=== PATIENT | female | born 1945 ===

== ENCOUNTER 2016-11-09 09:59 | Emergency (ER) | payer OTHER ==
[2016-11-09 10:09] VITALS: BP 124/65; PULSE 76; RESP 16; TEMP 98.1; O2SAT 100; BMI 20.9
--- NOTE | 2016-11-09 11:23 | ED PDOC ---
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 states for the past 10 years she's been having b/l hand pain. She was seen by a steamtable attendant railroad in [facility] who diagnosed her with arthritis. She was advised to take Advil which she has been taking intermittently since then. Over the past week symptoms worsened prompting ED visit today. Reports Advil no longer provides pain relief. Denies fever, trauma, numbness, tingling, weakness. Of note, when she wakes up in the morning pain is at its worst and she describes pain as a stiffness. Past Medical History Reviewed: Historical Data, Nursing Documentation, Vital Signs Vital Signs: Last Vital Signs Temp 98.1 F 11/09/16 10:08 Pulse 76 11/09/16 10:08 Resp 16 11/09/16 10:08 BP 124/65 11/09/16 10:08 Pulse Ox 100 11/09/16 10:08 - Medical History PMH: Arthritis, HTN - Surgical History Surgical History: Cholecystectomy - Family History Family History: States: No Known Family Hx - Home Medications Home Medications: Ambulatory Orders Medication Instructions Recorded Meloxicam [Mobic] 7.5 mg PO DAILY PRN #14 tab 11/09/16 - Allergies Allergies/Adverse Reactions: Allergies Allergy/AdvReac Type Severity Reaction Status Date / Time No Known Allergies Allergy Verified 11/09/16 10:15 Review of Systems ROS Statement: Except As Marked, All Systems Reviewed And Found Negative Musculoskeletal: Positive for: Hand Pain Physical Exam - Physical Exam Appears: Positive for: Well, Non-toxic, No Acute Distress Skin: Positive for: Normal Color, Warm. Negative for: Rash Pulses-Radial (L): 2+ Pulses-Radial (R): 2+ Extremity: Positive for: Normal ROM (actively of all joints on both hands), Capillary Refill (< 2 seconds of b/l hands), Other (b/l hands: no tenderness, swelling, deformity, warmth, erythema, break in skin integrity) - ECG O2 Sat by Pulse Oximetry: 100 Disposition - Clinical Impression Clinical Impression: Arthralgia - Patient ED Disposition Is Patient to be Admitted: No - Disposition Referrals: [facility] [Outside] Disposition: Routine/Home Disposition Time: 11:25 Condition: STABLE Additional Instructions: FOLLOW UP WITH [facility] IN 2 DAYS FOR FURTHER EVALUATION. Prescriptions: Meloxicam [Mobic] 7.5 mg PO DAILY PRN #14 tab PRN Reason: Pain Instructions: Arthralgia (ED) Forms: [employer] [facility] ([place]) Print Language: KITTITIAN
== END 2016-11-09 11:24 | disposition home or self-care (01) ==
LOC: H.ER 09:59
DX: M19.90 Unspecified osteoarthritis, unspecified site (principal); I10 Essential (primary) hypertension

== ENCOUNTER 2017-05-08 14:23 | Emergency (ER) | payer OTHER ==
[2017-05-08 14:23] VITALS: BMI 20.9
[2017-05-08 14:46] VITALS: PULSE 73; RESP 18; TEMP 99.6; O2SAT 98
--- NOTE | 2017-05-08 15:21 | ED PDOC ---
Upper Extremity Pain/Injury Time Seen by Provider: 05/08/17 14:48 Chief Complaint (Nursing): Upper Extremity Problem/Injury Chief Complaint (Provider): Left wrist and shoulder pain History Per: Patient History/Exam Limitations: no limitations Onset/Duration Of Symptoms: Hrs Current Symptoms Are (Timing): Still Present Quality: "Pain" Additional History Per: Patient Additional Complaint(s): 71 yo female with history of hypertension and arthritis, presents to ED with pain to left wrist and left shoulder s/p slip and fall earlier today. Patient tripped on sidewalk and fell with left arm out in front of her. She denies any head injury or loss of consciousness; she denies any weakness, numbness or tingling. Patient denies any dizziness or syncope prior to fall. PMD: [facility] Past Medical History Reviewed: Historical Data, Nursing Documentation, Vital Signs Vital Signs: Last Vital Signs Temp 99.6 F 05/08/17 14:41 Pulse 73 05/08/17 14:41 Resp 18 05/08/17 14:41 BP Pulse Ox 98 05/08/17 14:41 - Medical History PMH: Arthritis, HTN - Surgical History Surgical History: Cholecystectomy, (x 3) - Family History Family History: States: No Known Family Hx - Living Arrangements Living Arrangements: With Family - Social History Current smoker - smoking cessation education provided: No Ex-Smoker (has not smoked in the last 12 months): No Alcohol: None Drugs: Denies - Home Medications Home Medications: Ambulatory Orders Medication Instructions Recorded Meloxicam [Mobic] 7.5 mg PO DAILY PRN #14 tab 11/09/16 Ibuprofen [Motrin] 600 mg PO Q6 PRN #15 tab 05/08/17 - Allergies Allergies/Adverse Reactions: Allergies Allergy/AdvReac Type Severity Reaction Status Date / Time No Known Allergies Allergy Verified 11/09/16 10:15 Review of Systems ROS Statement: Except As Marked, All Systems Reviewed And Found Negative Musculoskeletal: Positive for: Other (Left wrist and left shoulder pain s/p trip and fall) Neurological: Positive for: Other (no head injury or LOC, no dizziness or syncope prior to fall) Physical Exam - Reviewed Nursing Documentation Reviewed: Yes Vital Signs Reviewed: Yes - Physical Exam Appears: Positive for: Non-toxic, No Acute Distress Head Exam: Positive for: ATRAUMATIC Skin: Positive for: Normal Color Eye Exam: Positive for: Normal appearance Neck: Positive for: Painless ROM, Pain On Movement Of Neck Cardiovascular/Chest: Positive for: Regular Rate, Rhythm Respiratory: Positive for: Normal Breath Sounds. Negative for: Respiratory Distress Pulses-Radial (L): 2+ Back: Negative for: L CVA Tenderness, R CVA Tenderness, Vertebral Tenderness Extremity: Positive for: Tenderness (diffuse tenderness to left anterior shoulder with full ROM of shoulder), Swelling (swelling and decreased ROM of left wrist along ulnar aspect.) Neurologic/Psych: Positive for: Alert, Oriented, Gait (steady). Negative for: Motor/Sensory Deficits - ECG O2 Sat by Pulse Oximetry: 98 (RA) Pulse Ox Interpretation: Normal - Other Rad Left wrist x-ray X-Ray: Viewed By Me, Read By Radiologist X-Ray Interpretation: swelling, no fx, no dis Left shoulder x-ray X-Ray: Interpreted by Me, Viewed By Me X-Ray Interpretation: no fx, no dis Medical Decision Making Medical Decision Making: Impression: left shoulder and wrist pain s/p mechanical fall Plan: -- XR left shoulder -- XR left wrist -- Motrin 600 mg PO Patient is aware of x-ray results, all questions answered. See procedure note. Rx motrin given. Patient was instructed to follow up with clinic in 2-3 days. Scribe Attestation: Documented by Hayley Rome acting as a scribe for GIBSON Taylor Provider Attestation: All medical record entries made by the Scribe were at my direction and personally dictated by me. I have reviewed the chart and agree that the record accurately reflects my personal performance of the history, physical exam, medical decision making, and the department course for this patient. I have also personally directed, reviewed, and agree with the discharge instructions and disposition. Procedures - Splinting Location: left arm Pre-Made Type: thumb spica velcro splint and sling to left arm Pre-Proc Neuro Vasc Exam: normal Post-Proc Neuro Vasc Exam: normal Disposition - Clinical Impression Clinical Impression: Left wrist sprain, Sprain of shoulder, left, Accidental fall - Patient ED Disposition Is Patient to be Admitted: No Counseled Patient/Family Regarding: Studies Performed, Diagnosis, Need For Followup, Rx Given - Disposition Referrals: [facility] [Outside] Disposition: Routine/Home Disposition Time: 16:45 Condition: STABLE Additional Instructions: Take prescription meds as directed as needed for pain. Ice and elevate affected area as much as possible. Follow up with clinic in 2-3 days. Prescriptions: Ibuprofen [Motrin] 600 mg PO Q6 PRN #15 tab PRN Reason: Pain, Moderate (4-7) Instructions: Wrist Sprain (DC), Shoulder Sprain, Preventing Falls Forms: [employer] (Lithuanian) Print Language: ARGENTINE
--- NOTE | 2017-05-08 16:23 | RAD ---
PROCEDURE: Left Wrist Radiographs. HISTORY: trauma COMPARISON: None. FINDINGS: BONES: Normal. No fracture. JOINTS: Normal. No dislocation. SOFT TISSUES: Soft tissue swelling adjacent to the distal ulna without associated fracture. OTHER FINDINGS: None. IMPRESSION: Soft tissue swelling without acute articular or osseous abnormality.
--- NOTE | 2017-05-08 17:19 | RAD ---
PROCEDURE: Radiographs of the Left Shoulder HISTORY: trauma COMPARISON: No prior. FINDINGS: BONES: Normal. No fracture. JOINTS: Normal. Glenohumeral and acromioclavicular joints preserved. No osteoarthritis. SOFT TISSUES: Normal. OTHER FINDINGS: None. IMPRESSION: Normal radiographs of the left shoulder.
== END 2017-05-08 17:15 | disposition home or self-care (01) ==
LOC: H.ER 14:23
DX: S63.502A Unspecified sprain of left wrist, initial encounter (principal); S43.402A Unspecified sprain of left shoulder joint, initial encounter; W19.XXXA Unspecified fall, initial encounter; Y92.480 Sidewalk as the place of occurrence of the external cause; I10 Essential (primary) hypertension